=== PATIENT | male | born 1935 | race Caucasian/White ===

== ENCOUNTER 2017-04-25 23:47 | Emergency (ER) | payer MEDICARE ==
[~2017-04-25] VITALS: Ht 172.7 cm; Wt 85.0 kg
[2017-04-25 23:53] VITALS: PULSE 78; RESP 16; O2SAT 96
[2017-04-26 00:08] VITALS: O2SAT 97
[2017-04-26 00:10] VITALS: BP 142/65; PULSE 89; RESP 16; TEMP 97.7; O2SAT 90
[2017-04-26] MEDS ORDERED: SODIUM CHLORIDE 0.9% FLUSH 10 ML FLUSH IV FLUSH PRN (00:15)
--- NOTE | 2017-04-26 00:37 | RADRPT ---
EXAM DATE/TIME: 04/26/2017 00:14 [facility] COMPARISON: No previous studies available for comparison. INDICATIONS : Shortness of breath. MEDICAL HISTORY : None. SURGICAL HISTORY : None. ENCOUNTER: Initial ACUITY: 1 day PAIN SCORE: 0/10 LOCATION: Bilateral chest FINDINGS: There is some engorgement of the central bronchopulmonary markings. Heart size is upper limits yelena l for semierect film. Both hemidiaphragms are well delineated. No consolidative infiltrates seen. CONCLUSION: Mild cardiomegaly and engorgement of the central vascularity. No alveolar opacities seen. De Mejia MD on April 26, 2017 at 0:34 Board Certified Radiologist. This report was verified electronically.
[2017-04-26 00:40] LABS: BASOPHIL % 0.4 % (0.0-2.0); EOSINOPHIL # 0.4 TH/MM3 (0-0.4); EOSINOPHIL % 6.3 % (0.0-4.0); HEMATOCRIT 41.6 % (39.0-51.0); HEMO FLAGS DIFF FINAL; LYMPH % 25.3 % (9.0-44.0); LYMPHOCYTE # 1.8 TH/MM3 (1.0-4.8); MEAN CELL VOLUME 91.7 FL (80.0-100.0); MEAN CORPUSCULAR HEMOGLOBIN 30.9 PG (27.0-34.0); MEAN CORPUSCULAR HGB CONC 33.8 % (32.0-36.0); MONO % 11.7 % (0.0-8.0); NEUT % 56.3 % (16.0-70.0); PLATELET COUNT 162 TH/MM3 (150-450); RED BLOOD COUNT 4.53 MIL/MM3 (4.50-5.90); RED CELL DISTRIBUTION WIDTH 14.3 % (11.6-17.2); WHITE BLOOD COUNT 7.1 TH/MM3 (4.0-11.0)
[2017-04-26 00:52] LABS: PROTHROMBIN TIME - PATIENT 10.5 SEC (9.8-11.6)
[2017-04-26 01:11] LABS: ALT (GPT) 43 U/L (12-78); ANION GAP 6 MEQ/L (5-15); AST (GOT) 29 U/L (15-37); BICARBONATE 27.6 MEQ/L (21.0-32.0); BLOOD UREA NITROGEN 21 MG/DL (7-18); CHLORIDE 101 MEQ/L (98-107); GLOMERULAR FILTRATION RATE 34 ML/MIN (>89); SODIUM (NA) 135 MEQ/L (136-145)
[2017-04-26 01:15] LABS: ALKALINE PHOSPHATASE 79 U/L (45-117); TOTAL BILIRUBIN ADULT 0.4 MG/DL (0.2-1.0)
--- NOTE | 2017-04-26 01:21 | RADRPT ---
EXAM DATE/TIME: 04/26/2017 00:53 [facility] COMPARISON: No previous studies available for comparison. INDICATIONS : Altered mental status. RADIATION DOSE: 56.35 CTDIvol (mGy) MEDICAL HISTORY : Chronic obstructive pulmonary disease. SURGICAL HISTORY : None. ENCOUNTER: Initial ACUITY: 1 day PAIN SCALE: 0/10 LOCATION: cranial TECHNIQUE: Multiple contiguous axial images were obtained of the head. Using automated exposure control and adj ustment of the mA and/or kV according to patient size, radiation dose was kept as low as reasonably a chievable to obtain optimal diagnostic quality images. DICOM format image data is available electro nically for review and comparison. FINDINGS: CEREBRUM: The ventricles, sulci, and basal cisterns are prominent characteristic of moderate severity central c ortical atrophy. There is a 9 mm hypodensity in the left body of the caudate characteristic of an ol d infarction. Diffuse mild decreased attenuation in the white matter.. No evidence of midline shift , mass lesion, hemorrhage or acute infarction. No extra-axial fluid collections are seen. POSTERIOR FOSSA: The cerebellum and brainstem are intact. The 4th ventricle is midline. The cerebellopontine angle i s unremarkable. EXTRACRANIAL: The visualized portion of the orbits is intact. SKULL: The calvaria is intact. No evidence of skull fracture. CONCLUSION: 1. No acute findings in the brain. 2. 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 De Mejia MD on April 26, 2017 at 1:15 Board Certified Radiologist. This report was verified electronically.
[2017-04-26 01:23] VITALS: BP 118/58; PULSE 76; RESP 16; O2SAT 96
[2017-04-26 01:28] LABS: ALCOHOL LESS THAN 3 MG/DL (0-5)
[2017-04-26] MEDS ORDERED: SODIUM CHLORID 0.9% 500 ML INJ 500 ML IV ONE (01:45)
[2017-04-26] MEDS ORDERED: INSULIN HUMAN REGULAR 1,000 UNITS/10 ML VIAL SQ ONE (01:45)
[2017-04-26 03:06] LABS: BLOOD, URINE NEG (NEG); COMMENT (UR) CATH-CULT NOT IND; CULTURE IF INDICATED CATH CULTURE NOT IND; GLUCOSE,URINE 1000 mg/dL (NEG); HYALINE CAST, URINE 35 /lpf (RARE); KETONE, URINE NEG (NEG); MUCUS URINE FEW /lpf (OCC); NITRITE,URINE NEG (NEG); SQUAMOUS EPITHELIAL CELL URINE <1 /hpf (0-5); URINE COLOR YELLOW (YELLW/STRAW)
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
[2017-04-26 04:05] VITALS: BP 140/66; PULSE 73; RESP 16; O2SAT 96
--- NOTE | 2017-04-26 15:23 | EKG ---
Date Performed: 04/26/2017 Time Performed: 00:06:24 PTAGE: 81 years EKG: Sinus rhythm PATTERN CONSISTENT WITH PULMONARY DISEASE LEFT ANTERIOR FASCICULAR BLOCK SEPTAL MYOCARDIAL INFARCTIO N ABNORMAL ECG NO PREVIOUS TRACING DOCTOR: Jose Villanueva Interpretating Date/Time 04/26/2017 15:22:50
== END 2017-04-26 04:42 | disposition home or self-care (01) ==
LOC: NEPE 23:47
DX: F12.129 Cannabis abuse with intoxication, unspecified (principal); H53.8 Other visual disturbances; M62.838 Other muscle spasm; J44.9 Chronic obstructive pulmonary disease, unspecified; E11.40 Type 2 diabetes mellitus with diabetic neuropathy, unspecified; I44.4 Left anterior fascicular block; I25.2 Old myocardial infarction; R94.31 Abnormal electrocardiogram [ECG] [EKG]; I51.7 Cardiomegaly
CPT/HCPCS: 70450; 71010; 80053; 80307; 81001; 84484; 85025; 85610; 85730; 93005; 96372; 99285; J1815; J7040; P9612